=== PATIENT | male | born 1965 | race Caucasian/White ===

== ENCOUNTER 2018-12-26 17:28 | Observation (INO) | payer MEDICAID, OTHER ==
[2018-12-26 18:50] LABS: ADD MAN DIFF? NO
[2018-12-26 18:52] LABS: BASOPHIL # 0.1 10^3/ul (0.0-0.1); BASOPHILS % 0.8 % (0.0-2.0); EOSINOPHILS # 0.1 10^3/ul (0.0-0.5); EOSINOPHILS % 1.4 % (0.0-7.0); HEMATOCRIT 45.6 % (42.0-52.0); HEMOGLOBIN 15.7 g/dl (14.0-18.0); LYMPHOCYTES # 2.8 10^3/ul (0.8-2.9); LYMPHOCYTES % 32.1 % (15.0-51.0); MEAN CORPUSCULAR HEMOGLOBIN 29.8 pg (29.0-33.0); MEAN CORPUSCULAR HGB CONC 34.4 g/dl (32.0-37.0); MEAN CORPUSCULAR VOLUME 86.5 fl (82.0-101.0); MEAN PLATELET VOLUME 10.3 fl (7.4-10.4); MONOCYTE # 0.6 10^3/ul (0.3-0.9); MONOCYTES % 6.8 % (0.0-11.0); NEUTROPHIL # 5.1 10^3/ul (1.6-7.5); NEUTROPHILS % 58.2 % (39.0-77.0); PLATELET COUNT 204 10^3/UL (140-415); RED BLOOD COUNT 5.27 10^6/ul (4.70-6.10); RED CELL DISTRIBUTION WIDTH 12.1 % (11.5-14.5)
[2018-12-26 18:52] LABS: WHITE BLOOD COUNT 8.8 10^3/ul (4.8-10.8)
[2018-12-26] MEDS: NITROGLYCERIN 2% 1 GM OINT PKT TD (18:58)
[2018-12-26] MEDS: NITROGLYCERIN (SL) 0.4 MG TAB SL ×2 (18:58→23:59)
[2018-12-26] MEDS: ASPIRIN 81 MG TAB PO (18:58)
[2018-12-26 19:08] LABS: ANION GAP 7 (5-13); BLOOD UREA NITROGEN 16 mg/dl (7-20); CALCIUM 9.7 mg/dl (8.4-10.2); CARBON DIOXIDE 27 mmol/L (21-31); CHLORIDE 106 mmol/L (97-110); CREATININE 0.78 mg/dl (0.61-1.24); Estimated GFR > 60 mL/min (>60); GLUCOSE 222 mg/dl (70-220); POTASSIUM 4.4 mmol/L (3.5-5.1); SODIUM 140 mmol/L (135-144)
[2018-12-26 19:21] LABS: TROPONIN-I < 0.012 ng/ml (0.000-0.120)
[2018-12-26] MEDS ORDERED: NACL 0.9% 3 ML SYG IV (20:00)
[2018-12-26] MEDS ORDERED: ACETAMINOPHEN 325 MG TAB PO (20:00)
[2018-12-26] MEDS ORDERED: ONDANSETRON 4 MG INJ IV (20:00)
[2018-12-26] MEDS ORDERED: ALBUTEROL/IPRATROPIUM (NEB) 3 ML AMP HHN (20:00)
[2018-12-26] MEDS ORDERED: GLUCAGON 1 MG INJ IM (20:30)
[2018-12-26] MEDS ORDERED: GLUCOSE GEL 15 GRAM TUBE BUCCAL (20:30)
[2018-12-26] MEDS ORDERED: GLUCOSE GEL 15 GRAM TUBE PO ×2 (20:30)
[2018-12-26] MEDS ORDERED: DEXTROSE 50% 50 ML SYRINGE IV ×2 (20:30)
[2018-12-26] MEDS: morphine 4 MG/ML VIAL IV (20:50)
[2018-12-26] MEDS: ONDANSETRON 4 MG INJ IV (20:51)
[2018-12-26] MEDS: ATORVASTATIN 20 MG TAB PO (21:31)
[2018-12-26] MEDS: INSULIN ASPART [NOVOLOG] 3 ML PEN SC (21:53)
[2018-12-27] MEDS: NITROGLYCERIN (SL) 0.4 MG TAB SL ×3 (00:05→11:27)
[2018-12-27] MEDS: morphine 4 MG/ML VIAL IV ×2 (00:16→00:34)
[2018-12-27 00:40] LABS: CREATINE KINASE 40 IU/L (23-200)
[2018-12-27 00:53] LABS: CK INDEX 1.3; TROPONIN-I < 0.012 ng/ml (0.000-0.120)
[2018-12-27] MEDS: ACCU-CHEK XX (01:18)
[2018-12-27 06:26] LABS: ADD MAN DIFF? NO
[2018-12-27 06:37] LABS: WHITE BLOOD COUNT 7.5 10^3/ul (4.8-10.8)
[2018-12-27 06:37] LABS: BASOPHIL # 0.1 10^3/ul (0.0-0.1); BASOPHILS % 0.9 % (0.0-2.0); EOSINOPHILS # 0.1 10^3/ul (0.0-0.5); EOSINOPHILS % 1.6 % (0.0-7.0); HEMATOCRIT 43.8 % (42.0-52.0); HEMOGLOBIN 15.1 g/dl (14.0-18.0); LYMPHOCYTES % 39.5 % (15.0-51.0); MEAN CORPUSCULAR HGB CONC 34.5 g/dl (32.0-37.0); MEAN CORPUSCULAR VOLUME 87.1 fl (82.0-101.0); MEAN PLATELET VOLUME 10.4 fl (7.4-10.4); MONOCYTE # 0.6 10^3/ul (0.3-0.9); MONOCYTES % 8.2 % (0.0-11.0); NEUTROPHIL # 3.7 10^3/ul (1.6-7.5); NEUTROPHILS % 49.3 % (39.0-77.0); PLATELET COUNT 183 10^3/UL (140-415); RED BLOOD COUNT 5.03 10^6/ul (4.70-6.10); RED CELL DISTRIBUTION WIDTH 12.2 % (11.5-14.5)
[2018-12-27 07:02] LABS: ALANINE AMINOTRANSFERASE 20 IU/L (13-69); ALBUMIN 3.5 g/dl (3.3-4.9); ALBUMIN/GLOBULIN RATIO 1.52; ALKALINE PHOSPHATASE 47 IU/L (42-121); ANION GAP 7 (5-13); ASPARTATE AMINO TRANSFERASE 19 IU/L (15-46); BILIRUBIN,INDIRECT 0.5 mg/dl (0-1.1); BILIRUBIN,TOTAL 0.5 mg/dl (0.2-1.3); BLOOD UREA NITROGEN 17 mg/dl (7-20); CALCIUM 9.2 mg/dl (8.4-10.2); CARBON DIOXIDE 28 mmol/L (21-31); CHLORIDE 106 mmol/L (97-110); CHOL/HDL RATIO 7.8 RATIO; CHOLESTEROL 141 mg/dl (100-200); CREATININE 0.66 mg/dl (0.61-1.24); Estimated GFR > 60 mL/min (>60); GLUCOSE 166 mg/dl (70-220); HDL CHOLESTEROL 18 mg/dl (28-71); LDL CHOLESTEROL,CALCULATED 88 mg/dl; MAGNESIUM 1.9 mg/dl (1.7-2.5); POTASSIUM 4.1 mmol/L (3.5-5.1); SODIUM 141 mmol/L (135-144); TOTAL PROTEIN 5.8 g/dl (6.1-8.1); TRIGLYCERIDES 174 mg/dl (0-149)
[2018-12-27 07:24] LABS: CREATINE KINASE 45 IU/L (23-200)
[2018-12-27 07:25] LABS: CK INDEX 1.2; CK-MB 0.53 ng/ml (0.0-2.4); TROPONIN-I < 0.012 ng/ml (0.000-0.120)
[2018-12-27 07:40] LABS: HEMOGLOBIN A1C 9.3 % (0-5.9)
[2018-12-27] MEDS: INSULIN ASPART [NOVOLOG] 3 ML PEN SC ×5 (07:56→20:11)
[2018-12-27] MEDS: CLOPIDOGREL 75 MG TAB PO (08:19)
[2018-12-27] MEDS: FENOFIBRATE 48 MG TAB PO (08:19)
[2018-12-27] MEDS: LISINOPRIL 5 MG TAB PO (08:20)
[2018-12-27] MEDS: ISOSORBIDE MONONITRATE(SR)60 MG TAB PO (08:21)
[2018-12-27] MEDS: RIVAROXABAN 20 MG TABLET PO (08:21)
[2018-12-27] MEDS ORDERED: ENOXAPARIN 40 MG/0.4 ML SYG SC (09:00)
[2018-12-27] MEDS: morphine 2 MG INJ IV ×3 (12:21→22:56)
[2018-12-27] MEDS: INSULIN GLARGINE [LANTus] (100 UNITS/ML) SYG SC (13:51)
[2018-12-27] MEDS ORDERED: SOD CHLORIDE 0.9% 100 ML (16:13)
[2018-12-27] MEDS ORDERED: IOHEXOL 100 ML (16:13)
[2018-12-27] MEDS: MAGNESIUM SULFATE 1 GM/D5W 100 ML IVPB (17:33)
[2018-12-27] MEDS: RANOLAZINE (SR) 500 MG TAB PO (21:00)
[2018-12-27] MEDS: ATORVASTATIN 20 MG TAB PO (21:08)
[2018-12-28] MEDS: ACCU-CHEK XX (01:08)
[2018-12-28] MEDS: morphine 2 MG INJ IV (03:31)
[2018-12-28] MEDS: INSULIN ASPART [NOVOLOG] 3 ML PEN SC ×4 (07:39→12:36)
[2018-12-28] MEDS: FENOFIBRATE 48 MG TAB PO (08:48)
[2018-12-28] MEDS: RANOLAZINE (SR) 500 MG TAB PO ×2 (08:48→08:53)
[2018-12-28] MEDS: CLOPIDOGREL 75 MG TAB PO (08:49)
[2018-12-28] MEDS: LISINOPRIL 5 MG TAB PO (08:49)
[2018-12-28] MEDS: ISOSORBIDE MONONITRATE(SR)60 MG TAB PO (08:49)
[2018-12-28] MEDS: RIVAROXABAN 20 MG TABLET PO (08:49)
[2018-12-28 08:53] LABS: ANION GAP 6 (5-13); BLOOD UREA NITROGEN 18 mg/dl (7-20); CARBON DIOXIDE 29 mmol/L (21-31); CHLORIDE 105 mmol/L (97-110); CREATININE 0.77 mg/dl (0.61-1.24); Estimated GFR > 60 mL/min (>60); GLUCOSE 163 mg/dl (70-220); POTASSIUM 4.1 mmol/L (3.5-5.1); SODIUM 140 mmol/L (135-144)
[2018-12-28] MEDS: INSULIN GLARGINE [LANTus] (100 UNITS/ML) SYG SC (09:59)
== END 2018-12-28 13:00 | disposition home or self-care (01) ==
LOC: E/R 17:28 → TEL 21:07
DX: R07.9 Chest pain, unspecified (principal); I10 Essential (primary) hypertension; E11.9 Type 2 diabetes mellitus without complications; Z79.84 Long term (current) use of oral hypoglycemic drugs; I25.10 Atherosclerotic heart disease of native coronary artery without angina pectoris; Z95.5 Presence of coronary angioplasty implant and graft; Z95.1 Presence of aortocoronary bypass graft; E78.5 Hyperlipidemia, unspecified; Z86.711 Personal history of pulmonary embolism; Z72.0 Tobacco use
CPT/HCPCS: 36415; 71045; 75571-59; 75574; 80048; 80053; 80061; 82550; 82553; 82962; 83036; 83735; 84443; 84484; 85025; 93005; 93306; 93971; 96374; 96375; 99217; 99285-25; G0378

== ENCOUNTER 2019-01-13 18:55 | Inpatient (IN) | payer MEDICAID ==
[2019-01-13 20:01] LABS: ADD MAN DIFF? NO
[2019-01-13 20:03] LABS: BASOPHIL # 0.1 10^3/ul (0.0-0.1); BASOPHILS % 0.8 % (0.0-2.0); EOSINOPHILS # 0.1 10^3/ul (0.0-0.5); EOSINOPHILS % 1.5 % (0.0-7.0); HEMATOCRIT 43.8 % (42.0-52.0); HEMOGLOBIN 15.1 g/dl (14.0-18.0); LYMPHOCYTES # 2.4 10^3/ul (0.8-2.9); LYMPHOCYTES % 32.6 % (15.0-51.0); MEAN CORPUSCULAR HEMOGLOBIN 29.7 pg (29.0-33.0); MEAN CORPUSCULAR HGB CONC 34.5 g/dl (32.0-37.0); MEAN CORPUSCULAR VOLUME 86.2 fl (82.0-101.0); MEAN PLATELET VOLUME 10.3 fl (7.4-10.4); MONOCYTE # 0.6 10^3/ul (0.3-0.9); MONOCYTES % 7.5 % (0.0-11.0); NEUTROPHIL # 4.3 10^3/ul (1.6-7.5); NEUTROPHILS % 57.2 % (39.0-77.0); PLATELET COUNT 177 10^3/UL (140-415); RED BLOOD COUNT 5.08 10^6/ul (4.70-6.10)
[2019-01-13 20:03] LABS: WHITE BLOOD COUNT 7.5 10^3/ul (4.8-10.8)
[2019-01-13] MEDS: ONDANSETRON 4 MG INJ IV (20:03)
[2019-01-13] MEDS: SOD CHLORIDE 0.9% 1,000 ML IV (20:03)
[2019-01-13] MEDS: ASPIRIN 325 MG TAB PO (20:04)
[2019-01-13] MEDS: HYDROmorphONE 1 MG/ML SYG IV (20:04)
[2019-01-13 20:19] LABS: INR 1.08; PROTIME 14.1 Sec (11.9-14.9); PT RATIO 1.1
[2019-01-13 20:20] LABS: PARTIAL THROMBOPLASTIN TIME 33.7 Sec (23.0-35.0)
[2019-01-13 20:22] LABS: ANION GAP 6 (5-13); BLOOD UREA NITROGEN 14 mg/dl (7-20); CALCIUM 9.1 mg/dl (8.4-10.2); CARBON DIOXIDE 25 mmol/L (21-31); CHLORIDE 110 mmol/L (97-110); CREATINE KINASE 70 IU/L (23-200); CREATININE 0.61 mg/dl (0.61-1.24); Estimated GFR > 60 mL/min (>60); GLUCOSE 247 mg/dl (70-220); POTASSIUM 4.1 mmol/L (3.5-5.1); SODIUM 141 mmol/L (135-144)
[2019-01-13 20:31] LABS: CK INDEX 1.1; CK-MB 0.75 ng/ml (0.0-2.4)
[2019-01-13 20:35] LABS: TROPONIN-I < 0.012 ng/ml (0.000-0.120)
[2019-01-13] MEDS: HYDROmorphONE 2 MG/ML SYG IV (22:26)
[2019-01-13] MEDS: NITROGLYCERIN 2% 1 GM OINT PKT TD (22:28)
[2019-01-13] MEDS ORDERED: NITROGLYCERIN (SL) 0.4 MG TAB SL (22:30)
[2019-01-13] MEDS ORDERED: ONDANSETRON 4 MG INJ IV (22:30)
[2019-01-13] MEDS ORDERED: ACETAMINOPHEN 325 MG TAB PO (22:30)
[2019-01-14] MEDS ORDERED: NACL 0.9% 3 ML SYG IV (02:00)
[2019-01-14] MEDS ORDERED: ALBUTEROL/IPRATROPIUM (NEB) 3 ML AMP HHN (02:00)
[2019-01-14] MEDS ORDERED: NITROGLYCERIN (SL) 0.4 MG TAB SL ×2 (02:00)
[2019-01-14] MEDS ORDERED: ACETAMINOPHEN 325 MG TAB PO (02:00)
[2019-01-14 02:57] LABS: CREATINE KINASE 55 IU/L (23-200)
[2019-01-14 03:10] LABS: CK INDEX 1.4; CK-MB 0.77 ng/ml (0.0-2.4); TROPONIN-I < 0.012 ng/ml (0.000-0.120)
[2019-01-14] MEDS: KETOROLAC 30 MG INJ IV ×4 (03:32→20:42)
[2019-01-14] MEDS: ACCU-CHEK XX ×4 (05:52→21:34)
[2019-01-14 07:25] LABS: ADD MAN DIFF? NO
[2019-01-14 07:28] LABS: WHITE BLOOD COUNT 7.2 10^3/ul (4.8-10.8)
[2019-01-14 07:28] LABS: BASOPHIL # 0.1 10^3/ul (0.0-0.1); BASOPHILS % 0.8 % (0.0-2.0); EOSINOPHILS # 0.1 10^3/ul (0.0-0.5); EOSINOPHILS % 1.7 % (0.0-7.0); HEMATOCRIT 43.9 % (42.0-52.0); LYMPHOCYTES # 2.8 10^3/ul (0.8-2.9); LYMPHOCYTES % 38.4 % (15.0-51.0); MEAN CORPUSCULAR HEMOGLOBIN 29.9 pg (29.0-33.0); MEAN CORPUSCULAR HGB CONC 34.2 g/dl (32.0-37.0); MEAN CORPUSCULAR VOLUME 87.6 fl (82.0-101.0); MEAN PLATELET VOLUME 10.4 fl (7.4-10.4); MONOCYTE # 0.6 10^3/ul (0.3-0.9); MONOCYTES % 7.9 % (0.0-11.0); NEUTROPHIL # 3.6 10^3/ul (1.6-7.5); NEUTROPHILS % 50.8 % (39.0-77.0); PLATELET COUNT 157 10^3/UL (140-415); RED BLOOD COUNT 5.01 10^6/ul (4.70-6.10); RED CELL DISTRIBUTION WIDTH 12.3 % (11.5-14.5)
[2019-01-14 07:51] LABS: ALANINE AMINOTRANSFERASE 24 IU/L (13-69); ALBUMIN 3.6 g/dl (3.3-4.9); ALKALINE PHOSPHATASE 43 IU/L (42-121); ANION GAP 4 (5-13); ASPARTATE AMINO TRANSFERASE 18 IU/L (15-46); BILIRUBIN,INDIRECT 0.7 mg/dl (0-1.1); BILIRUBIN,TOTAL 0.7 mg/dl (0.2-1.3); BLOOD UREA NITROGEN 17 mg/dl (7-20); CALCIUM 8.7 mg/dl (8.4-10.2); CARBON DIOXIDE 25 mmol/L (21-31); CHLORIDE 112 mmol/L (97-110); CREATINE KINASE 55 IU/L (23-200); CREATININE 0.71 mg/dl (0.61-1.24); Estimated GFR > 60 mL/min (>60); GLUCOSE 183 mg/dl (70-220); POTASSIUM 4.1 mmol/L (3.5-5.1); SODIUM 141 mmol/L (135-144)
[2019-01-14 08:01] LABS: CK INDEX 1.3
[2019-01-14 08:03] LABS: TROPONIN-I < 0.012 ng/ml (0.000-0.120)
[2019-01-14] MEDS ORDERED: ENOXAPARIN 80 MG/0.8 ML SYG (08:32)
[2019-01-14] MEDS: CLOPIDOGREL 75 MG TAB PO (08:39)
[2019-01-14] MEDS: LISINOPRIL 5 MG TAB PO (08:40)
[2019-01-14] MEDS: FENOFIBRATE 48 MG TAB PO (08:40)
[2019-01-14] MEDS: RIVAROXABAN 10 MG TABLET PO (08:41)
[2019-01-14] MEDS: ISOSORBIDE MONONITRATE(SR)60 MG TAB PO (08:41)
[2019-01-14] MEDS: metFORMIN 500 MG TAB PO ×2 (08:41→18:03)
[2019-01-14] MEDS: HYDROCODONE/APAP (5/325) TAB PO ×2 (10:01→12:10)
[2019-01-14] MEDS: IOHEXOL 100 ML (16:42)
[2019-01-14] MEDS: SOD CHLORIDE 0.9% 100 ML (16:42)
[2019-01-14] MEDS: ONDANSETRON 4 MG INJ IV (20:42)
[2019-01-14] MEDS: ATORVASTATIN 20 MG TAB PO (20:42)
[2019-01-14] MEDS: ENOXAPARIN 80 MG/0.8 ML SYG SC (20:48)
[2019-01-15 05:33] LABS: ADD MAN DIFF? NO
[2019-01-15 05:34] LABS: WHITE BLOOD COUNT 7.5 10^3/ul (4.8-10.8)
[2019-01-15 05:34] LABS: BASOPHILS % 0.5 % (0.0-2.0); EOSINOPHILS # 0.1 10^3/ul (0.0-0.5); EOSINOPHILS % 1.6 % (0.0-7.0); HEMATOCRIT 39.7 % (42.0-52.0); HEMOGLOBIN 13.4 g/dl (14.0-18.0); LYMPHOCYTES # 1.7 10^3/ul (0.8-2.9); LYMPHOCYTES % 23.1 % (15.0-51.0); MEAN CORPUSCULAR HEMOGLOBIN 29.7 pg (29.0-33.0); MEAN CORPUSCULAR HGB CONC 33.8 g/dl (32.0-37.0); MEAN PLATELET VOLUME 10.6 fl (7.4-10.4); MONOCYTE # 0.6 10^3/ul (0.3-0.9); MONOCYTES % 7.3 % (0.0-11.0); PLATELET COUNT 132 10^3/UL (140-415); POSITIVE DIFF @See below; RED BLOOD COUNT 4.51 10^6/ul (4.70-6.10)
[2019-01-15] MEDS: ACCU-CHEK XX ×5 (06:19→20:23)
[2019-01-15 06:29] LABS: ANION GAP 5 (5-13); BLOOD UREA NITROGEN 21 mg/dl (7-20); CALCIUM 8.9 mg/dl (8.4-10.2); CARBON DIOXIDE 27 mmol/L (21-31); CHLORIDE 110 mmol/L (97-110); CREATININE 0.77 mg/dl (0.61-1.24); Estimated GFR > 60 mL/min (>60); GLUCOSE 118 mg/dl (70-220); MAGNESIUM 1.9 mg/dl (1.7-2.5); PHOSPHORUS 4.3 mg/dl (2.5-4.9); POTASSIUM 4.1 mmol/L (3.5-5.1); SODIUM 142 mmol/L (135-144)
[2019-01-15] MEDS: metFORMIN 500 MG TAB PO ×2 (08:20→20:53)
[2019-01-15] MEDS: FENOFIBRATE 48 MG TAB PO (08:21)
[2019-01-15] MEDS: CLOPIDOGREL 75 MG TAB PO (08:21)
[2019-01-15] MEDS: LISINOPRIL 5 MG TAB PO (08:21)
[2019-01-15] MEDS: HYDROCODONE/APAP (5/325) TAB PO ×3 (08:22→20:55)
[2019-01-15] MEDS: ISOSORBIDE MONONITRATE(SR)60 MG TAB PO (08:22)
[2019-01-15 12:49] LABS: URIC ACID 2.6 mg/dl (3.1-7.9)
[2019-01-15] MEDS: ATORVASTATIN 20 MG TAB PO (20:45)
[2019-01-15] MEDS: RANOLAZINE (SR) 500 MG TAB PO (20:46)
[2019-01-15] MEDS: ENOXAPARIN 80 MG/0.8 ML SYG SC (20:49)
[2019-01-15] MEDS: ONDANSETRON 4 MG INJ IV (22:30)
[2019-01-16] MEDS: HYDROCODONE/APAP (5/325) TAB PO ×3 (04:22→16:25)
[2019-01-16] MEDS: ACCU-CHEK XX ×4 (07:00→21:00)
[2019-01-16] MEDS: FENOFIBRATE 48 MG TAB PO (08:27)
[2019-01-16] MEDS: ISOSORBIDE MONONITRATE(SR)60 MG TAB PO (08:27)
[2019-01-16] MEDS: RANOLAZINE (SR) 500 MG TAB PO ×2 (08:27→20:26)
[2019-01-16] MEDS: CLOPIDOGREL 75 MG TAB PO (08:27)
[2019-01-16] MEDS: LISINOPRIL 5 MG TAB PO (08:27)
[2019-01-16] MEDS: metFORMIN 500 MG TAB PO ×2 (08:30→17:19)
[2019-01-16 12:06] LABS: ADD MAN DIFF? NO
[2019-01-16 12:22] LABS: BASOPHILS % 0.6 % (0.0-2.0); EOSINOPHILS # 0.1 10^3/ul (0.0-0.5); EOSINOPHILS % 1.3 % (0.0-7.0); HEMATOCRIT 39.2 % (42.0-52.0); HEMOGLOBIN 13.6 g/dl (14.0-18.0); LYMPHOCYTES # 1.8 10^3/ul (0.8-2.9); LYMPHOCYTES % 26.4 % (15.0-51.0); MEAN CORPUSCULAR HEMOGLOBIN 30.4 pg (29.0-33.0); MEAN CORPUSCULAR HGB CONC 34.7 g/dl (32.0-37.0); MEAN CORPUSCULAR VOLUME 87.5 fl (82.0-101.0); MEAN PLATELET VOLUME 10.7 fl (7.4-10.4); MONOCYTE # 0.5 10^3/ul (0.3-0.9); MONOCYTES % 7.6 % (0.0-11.0); NEUTROPHIL # 4.3 10^3/ul (1.6-7.5); NEUTROPHILS % 63.8 % (39.0-77.0); PLATELET COUNT 139 10^3/UL (140-415); POSITIVE DIFF @See below; RED BLOOD COUNT 4.48 10^6/ul (4.70-6.10); RED CELL DISTRIBUTION WIDTH 11.9 % (11.5-14.5)
[2019-01-16 12:22] LABS: WHITE BLOOD COUNT 6.7 10^3/ul (4.8-10.8)
[2019-01-16 12:26] LABS: ANION GAP 4 (5-13); BLOOD UREA NITROGEN 17 mg/dl (7-20); CALCIUM 8.7 mg/dl (8.4-10.2); CARBON DIOXIDE 30 mmol/L (21-31); CHLORIDE 104 mmol/L (97-110); CREATININE 0.87 mg/dl (0.61-1.24); Estimated GFR > 60 mL/min (>60); GLUCOSE 100 mg/dl (70-220); POTASSIUM 4.4 mmol/L (3.5-5.1); SODIUM 138 mmol/L (135-144)
[2019-01-16] MEDS: ONDANSETRON 4 MG INJ IV (13:12)
[2019-01-16] MEDS: ATORVASTATIN 20 MG TAB PO (20:26)
[2019-01-16] MEDS: ENOXAPARIN 80 MG/0.8 ML SYG SC (20:31)
[2019-01-16] MEDS: KETOROLAC 30 MG INJ IV (21:50)
[2019-01-17] MEDS: KETOROLAC 30 MG INJ IV ×3 (03:52→15:56)
[2019-01-17 06:12] LABS: ADD MAN DIFF? NO
[2019-01-17 06:19] LABS: WHITE BLOOD COUNT 7.4 10^3/ul (4.8-10.8)
[2019-01-17 06:19] LABS: BASOPHIL # 0.1 10^3/ul (0.0-0.1); BASOPHILS % 0.7 % (0.0-2.0); EOSINOPHILS # 0.1 10^3/ul (0.0-0.5); EOSINOPHILS % 1.5 % (0.0-7.0); HEMATOCRIT 42.3 % (42.0-52.0); HEMOGLOBIN 14.5 g/dl (14.0-18.0); LYMPHOCYTES # 1.6 10^3/ul (0.8-2.9); LYMPHOCYTES % 21.2 % (15.0-51.0); MEAN CORPUSCULAR HGB CONC 34.3 g/dl (32.0-37.0); MEAN CORPUSCULAR VOLUME 87.6 fl (82.0-101.0); MEAN PLATELET VOLUME 10.6 fl (7.4-10.4); MONOCYTE # 0.6 10^3/ul (0.3-0.9); MONOCYTES % 7.8 % (0.0-11.0); NEUTROPHIL # 5.1 10^3/ul (1.6-7.5); NEUTROPHILS % 68.3 % (39.0-77.0); PLATELET COUNT 138 10^3/UL (140-415); POSITIVE DIFF @See below; RED BLOOD COUNT 4.83 10^6/ul (4.70-6.10); RED CELL DISTRIBUTION WIDTH 11.9 % (11.5-14.5)
[2019-01-17 06:55] LABS: ANION GAP 6 (5-13); BLOOD UREA NITROGEN 17 mg/dl (7-20); CALCIUM 9.2 mg/dl (8.4-10.2); CARBON DIOXIDE 31 mmol/L (21-31); CHLORIDE 105 mmol/L (97-110); CREATININE 0.93 mg/dl (0.61-1.24); Estimated GFR > 60 mL/min (>60); GLUCOSE 114 mg/dl (70-220); POTASSIUM 4.3 mmol/L (3.5-5.1); SODIUM 142 mmol/L (135-144)
[2019-01-17] MEDS: ACCU-CHEK XX ×4 (07:59→21:31)
[2019-01-17] MEDS: metFORMIN 500 MG TAB PO ×2 (08:04→17:13)
[2019-01-17] MEDS: RANOLAZINE (SR) 500 MG TAB PO ×2 (09:28→20:43)
[2019-01-17] MEDS: FENOFIBRATE 48 MG TAB PO (09:28)
[2019-01-17] MEDS: LISINOPRIL 5 MG TAB PO (09:29)
[2019-01-17] MEDS: ISOSORBIDE MONONITRATE(SR)60 MG TAB PO (09:29)
[2019-01-17] MEDS: CLOPIDOGREL 75 MG TAB PO (09:30)
[2019-01-17] MEDS: ONDANSETRON 4 MG INJ IV (10:36)
[2019-01-17] MEDS ORDERED: DEXTROSE 50% 50 ML SYRINGE IV ×2 (11:30)
[2019-01-17] MEDS ORDERED: GLUCOSE GEL 15 GRAM TUBE PO ×2 (11:30)
[2019-01-17] MEDS ORDERED: GLUCAGON 1 MG INJ IM (11:30)
[2019-01-17] MEDS ORDERED: GLUCOSE GEL 15 GRAM TUBE BUCCAL (11:30)
[2019-01-17] MEDS: GABAPENTIN 300 MG CAP PO ×2 (12:19→20:51)
[2019-01-17] MEDS: INSULIN ASPART [NOVOLOG] 3 ML PEN SC ×3 (12:22→21:00)
[2019-01-17] MEDS: HYDROCODONE/APAP (5/325) TAB PO ×2 (17:07→21:30)
[2019-01-17] MEDS: ATORVASTATIN 20 MG TAB PO (20:43)
[2019-01-17] MEDS: INSULIN GLARGINE [LANTus] (100 UNITS/ML) SYG SC (20:46)
[2019-01-17] MEDS: ENOXAPARIN 80 MG/0.8 ML SYG SC (20:49)
[2019-01-18] MEDS: ACCU-CHEK XX ×3 (01:51→11:30)
[2019-01-18] MEDS: INSULIN ASPART [NOVOLOG] 3 ML PEN SC ×2 (08:00→12:00)
[2019-01-18] MEDS: FENOFIBRATE 48 MG TAB PO (08:08)
[2019-01-18] MEDS: CLOPIDOGREL 75 MG TAB PO (08:08)
[2019-01-18] MEDS: RANOLAZINE (SR) 500 MG TAB PO (08:08)
[2019-01-18] MEDS: GABAPENTIN 300 MG CAP PO (08:08)
[2019-01-18] MEDS: LISINOPRIL 5 MG TAB PO (08:09)
[2019-01-18] MEDS: ISOSORBIDE MONONITRATE(SR)60 MG TAB PO (08:10)
[2019-01-18] MEDS: metFORMIN 500 MG TAB PO (08:13)
== END 2019-01-18 13:00 | disposition home or self-care (01) | DRG 301 ==
LOC: 6WM 22:22 → E/R 18:55
DX: E11.51 Type 2 diabetes mellitus with diabetic peripheral angiopathy without gangrene (principal); M76.72 Peroneal tendinitis, left leg; I25.10 Atherosclerotic heart disease of native coronary artery without angina pectoris; Z95.1 Presence of aortocoronary bypass graft; F17.200 Nicotine dependence, unspecified, uncomplicated; R07.9 Chest pain, unspecified; Z79.82 Long term (current) use of aspirin; E78.5 Hyperlipidemia, unspecified; K57.90 Diverticulosis of intestine, part unspecified, without perforation or abscess without bleeding; N28.1 Cyst of kidney, acquired
CPT/HCPCS: 36415; 71045; 73120; 73610; 73630-LT; 73718; 73721; 75635; 80048; 80053; 82550; 82553; 82962; 83735; 84100; 84484; 84560; 85025; 85610; 85730; 93005; 93922; 96374; 96375; 96376; 97161; 99285-25; G0378

== ENCOUNTER 2019-02-02 17:13 | Inpatient (IN) | payer MEDICAID ==
[2019-02-02] MEDS: morphine 4 MG/ML VIAL IV (18:35)
[2019-02-02] MEDS: ONDANSETRON 4 MG INJ IV (18:35)
[2019-02-02] MEDS: SOD CHLORIDE 0.9% 500 ML IV (18:36)
[2019-02-02 18:38] LABS: ADD MAN DIFF? NO
[2019-02-02 18:40] LABS: BASOPHIL # 0.1 10^3/ul (0.0-0.1); EOSINOPHILS # 0.2 10^3/ul (0.0-0.5); EOSINOPHILS % 1.5 % (0.0-7.0); HEMATOCRIT 46.9 % (42.0-52.0); HEMOGLOBIN 16.4 g/dl (14.0-18.0); LYMPHOCYTES # 3.3 10^3/ul (0.8-2.9); LYMPHOCYTES % 28.5 % (15.0-51.0); MEAN CORPUSCULAR HEMOGLOBIN 30.1 pg (29.0-33.0); MEAN CORPUSCULAR VOLUME 86.2 fl (82.0-101.0); MEAN PLATELET VOLUME 10.2 fl (7.4-10.4); MONOCYTE # 0.7 10^3/ul (0.3-0.9); MONOCYTES % 5.9 % (0.0-11.0); NEUTROPHIL # 7.3 10^3/ul (1.6-7.5); NEUTROPHILS % 62.6 % (39.0-77.0); PLATELET COUNT 275 10^3/UL (140-415); RED BLOOD COUNT 5.44 10^6/ul (4.70-6.10); RED CELL DISTRIBUTION WIDTH 12.1 % (11.5-14.5)
[2019-02-02 18:40] LABS: WHITE BLOOD COUNT 11.6 10^3/ul (4.8-10.8)
[2019-02-02 18:58] LABS: ANION GAP 13 (5-13); BLOOD UREA NITROGEN 14 mg/dl (7-20); CARBON DIOXIDE 25 mmol/L (21-31); CHLORIDE 105 mmol/L (97-110); CREATININE 0.72 mg/dl (0.61-1.24); Estimated GFR > 60 mL/min (>60); GLUCOSE 189 mg/dl (70-220); LIPASE 109 U/L (23-300); POTASSIUM 4.4 mmol/L (3.5-5.1); SODIUM 143 mmol/L (135-144)
[2019-02-02 19:00] LABS: PROTIME 15.3 Sec (11.9-14.9); PT RATIO 1.2
[2019-02-02] MEDS ORDERED: ONDANSETRON 4 MG INJ IV (19:00)
[2019-02-02] MEDS ORDERED: ACETAMINOPHEN 325 MG TAB PO (19:00)
[2019-02-02 19:01] LABS: PARTIAL THROMBOPLASTIN TIME 35.2 Sec (23.0-35.0)
[2019-02-02] MEDS ORDERED: HYDROCODONE/APAP (5/325) TAB PO (20:00)
[2019-02-02] MEDS ORDERED: NITROGLYCERIN (SL) 0.4 MG TAB SL (20:00)
[2019-02-02] MEDS ORDERED: MAGNESIUM HYDROXIDE 30ML CUP PO (20:00)
[2019-02-02] MEDS ORDERED: NACL 0.9% 3 ML SYG IV (20:00)
[2019-02-02 20:23] LABS: HEMOGLOBIN A1C 8.7 % (0-5.9)
[2019-02-02] MEDS: INSULIN ASPART [NOVOLOG] 3 ML PEN SC (21:00)
[2019-02-02] MEDS ORDERED: DEXTROSE 50% 50 ML SYRINGE IV ×2 (21:00)
[2019-02-02] MEDS ORDERED: GLUCAGON 1 MG INJ IM (21:00)
[2019-02-02] MEDS ORDERED: GLUCOSE GEL 15 GRAM TUBE BUCCAL (21:00)
[2019-02-02] MEDS ORDERED: GLUCOSE GEL 15 GRAM TUBE PO ×2 (21:00)
[2019-02-02] MEDS: HYDROCODONE/APAP (5/325) TAB PO (21:19)
[2019-02-02] MEDS: DOCUSATE SODIUM 100 MG CAP PO (21:34)
[2019-02-02] MEDS: ATORVASTATIN 20 MG TAB PO (21:34)
[2019-02-02] MEDS: HEPARIN 5,000 UNIT/1 ML VIAL SC (21:34)
[2019-02-02] MEDS: GABAPENTIN 300 MG CAP PO (21:41)
[2019-02-02] MEDS ORDERED: ENALAPRILAT 1.25 MG INJ IV (22:00)
[2019-02-02] MEDS: morphine 2 MG INJ IV (22:19)
[2019-02-03] MEDS: morphine 2 MG INJ IV ×4 (06:06→23:24)
[2019-02-03] MEDS: PANTOPRAZOLE (EC) 40 MG TAB PO (06:06)
[2019-02-03] MEDS: HEPARIN 5,000 UNIT/1 ML VIAL SC ×2 (06:17→14:49)
[2019-02-03 06:19] LABS: ADD MAN DIFF? NO
[2019-02-03 06:25] LABS: BASOPHIL # 0.1 10^3/ul (0.0-0.1); EOSINOPHILS # 0.1 10^3/ul (0.0-0.5); EOSINOPHILS % 1.8 % (0.0-7.0); HEMATOCRIT 47.7 % (42.0-52.0); HEMOGLOBIN 16.3 g/dl (14.0-18.0); LYMPHOCYTES # 3.3 10^3/ul (0.8-2.9); LYMPHOCYTES % 40.9 % (15.0-51.0); MEAN CORPUSCULAR HEMOGLOBIN 29.7 pg (29.0-33.0); MEAN CORPUSCULAR HGB CONC 34.2 g/dl (32.0-37.0); MEAN CORPUSCULAR VOLUME 86.9 fl (82.0-101.0); MEAN PLATELET VOLUME 10.1 fl (7.4-10.4); MONOCYTE # 0.6 10^3/ul (0.3-0.9); MONOCYTES % 7.4 % (0.0-11.0); NEUTROPHIL # 3.9 10^3/ul (1.6-7.5); NEUTROPHILS % 48.3 % (39.0-77.0); PLATELET COUNT 223 10^3/UL (140-415); RED BLOOD COUNT 5.49 10^6/ul (4.70-6.10); RED CELL DISTRIBUTION WIDTH 12.4 % (11.5-14.5)
[2019-02-03 06:55] LABS: ANION GAP 6 (5-13); BLOOD UREA NITROGEN 15 mg/dl (7-20); CALCIUM 9.3 mg/dl (8.4-10.2); CARBON DIOXIDE 30 mmol/L (21-31); CHLORIDE 105 mmol/L (97-110); CREATININE 0.78 mg/dl (0.61-1.24); Estimated GFR > 60 mL/min (>60); GLUCOSE 152 mg/dl (70-220); POTASSIUM 4.4 mmol/L (3.5-5.1); SODIUM 141 mmol/L (135-144)
[2019-02-03 07:04] LABS: INR 1.11; PROTIME 14.4 Sec (11.9-14.9); PT RATIO 1.1
[2019-02-03 07:05] LABS: PARTIAL THROMBOPLASTIN TIME 32.2 Sec (23.0-35.0)
[2019-02-03] MEDS: GABAPENTIN 300 MG CAP PO ×3 (08:07→20:27)
[2019-02-03] MEDS: FENOFIBRATE 48 MG TAB PO (08:07)
[2019-02-03] MEDS: LISINOPRIL 5 MG TAB PO (08:07)
[2019-02-03] MEDS: ONDANSETRON 4 MG INJ IV (08:07)
[2019-02-03] MEDS: ISOSORBIDE MONONITRATE(SR)60 MG TAB PO (08:07)
[2019-02-03] MEDS: INSULIN ASPART [NOVOLOG] 3 ML PEN SC ×4 (08:14→20:36)
[2019-02-03] MEDS: ASPIRIN 325 MG TAB PO (12:29)
[2019-02-03] MEDS: RANOLAZINE (SR) 500 MG TAB PO ×2 (12:30→22:02)
[2019-02-03] MEDS: ATORVASTATIN 80 MG TAB PO (20:27)
[2019-02-03] MEDS: HYDROCODONE/APAP (10/325) TAB PO (20:29)
[2019-02-04] MEDS: DEXTROSE 5%-0.45% NACL 1,000 ML IV ×2 (00:27→17:11)
[2019-02-04] MEDS: INSULIN ASPART [NOVOLOG] 3 ML PEN SC ×6 (00:42→20:53)
[2019-02-04] MEDS: morphine 2 MG INJ IV ×2 (05:33→09:47)
[2019-02-04 06:01] LABS: ADD MAN DIFF? NO
[2019-02-04 06:06] LABS: WHITE BLOOD COUNT 7.2 10^3/ul (4.8-10.8)
[2019-02-04 06:06] LABS: BASOPHIL # 0.1 10^3/ul (0.0-0.1); BASOPHILS % 0.8 % (0.0-2.0); EOSINOPHILS # 0.1 10^3/ul (0.0-0.5); EOSINOPHILS % 1.5 % (0.0-7.0); HEMATOCRIT 42.1 % (42.0-52.0); HEMOGLOBIN 14.7 g/dl (14.0-18.0); LYMPHOCYTES # 2.4 10^3/ul (0.8-2.9); LYMPHOCYTES % 33.7 % (15.0-51.0); MEAN CORPUSCULAR HGB CONC 34.9 g/dl (32.0-37.0); MEAN CORPUSCULAR VOLUME 85.9 fl (82.0-101.0); MEAN PLATELET VOLUME 10.1 fl (7.4-10.4); MONOCYTE # 0.6 10^3/ul (0.3-0.9); MONOCYTES % 8.1 % (0.0-11.0); NEUTROPHILS % 55.5 % (39.0-77.0); PLATELET COUNT 200 10^3/UL (140-415); RED CELL DISTRIBUTION WIDTH 12.2 % (11.5-14.5)
[2019-02-04 06:49] LABS: ALANINE AMINOTRANSFERASE 32 IU/L (13-69); ALBUMIN 3.5 g/dl (3.3-4.9); ALKALINE PHOSPHATASE 59 IU/L (42-121); ANION GAP 7 (5-13); ASPARTATE AMINO TRANSFERASE 23 IU/L (15-46); BILIRUBIN,INDIRECT 0.3 mg/dl (0-1.1); BILIRUBIN,TOTAL 0.3 mg/dl (0.2-1.3); BLOOD UREA NITROGEN 16 mg/dl (7-20); CALCIUM 8.8 mg/dl (8.4-10.2); CARBON DIOXIDE 26 mmol/L (21-31); CHLORIDE 106 mmol/L (97-110); CREATININE 0.82 mg/dl (0.61-1.24); Estimated GFR > 60 mL/min (>60); GLUCOSE 224 mg/dl (70-220); POTASSIUM 3.8 mmol/L (3.5-5.1); SODIUM 139 mmol/L (135-144)
[2019-02-04] MEDS: FAMOTIDINE 20 MG TAB PO (09:00)
[2019-02-04] MEDS: FENOFIBRATE 48 MG TAB PO (09:00)
[2019-02-04] MEDS: ISOSORBIDE MONONITRATE(SR)60 MG TAB PO (09:00)
[2019-02-04] MEDS: RANOLAZINE (SR) 500 MG TAB PO ×2 (09:00→20:55)
[2019-02-04] MEDS: LISINOPRIL 5 MG TAB PO (09:00)
[2019-02-04] MEDS: GABAPENTIN 300 MG CAP PO ×3 (09:00→20:55)
[2019-02-04] MEDS: ASPIRIN 325 MG TAB PO (09:00)
[2019-02-04] MEDS: HEPARIN 1000 UNITS/ML 10 ML INJ (12:09)
[2019-02-04] MEDS ORDERED: MIDAZOLAM 1 MG/ML 2 ML INJ (12:45)
[2019-02-04] MEDS ORDERED: HEPARIN 1000 UNITS/ML 10 ML INJ (14:05)
[2019-02-04] MEDS: GELATIN SIZE 100 SPONGE (14:44)
[2019-02-04] MEDS: THROMBIN 5000 UNIT VIAL (14:45)
[2019-02-04] MEDS ORDERED: CEFAZOLIN 1 GM INJ (15:09)
[2019-02-04] MEDS ORDERED: ROCURONIUM 50 MG INJ (15:09)
[2019-02-04] MEDS ORDERED: ETOMIDATE 20 MG INJ (15:09)
[2019-02-04] MEDS ORDERED: LIDOCAINE 2% (SDV) 5 ML INJ (15:09)
[2019-02-04] MEDS ORDERED: ONDANSETRON 4 MG INJ (15:10)
[2019-02-04] MEDS ORDERED: HYDROmorphONE 1 MG/5 ML IV SYRINGE IV (15:30)
[2019-02-04] MEDS ORDERED: FENTAnyl 50 MCG/ML VIAL IV (15:30)
[2019-02-04] MEDS ORDERED: MEPERIDINE 25 MG INJ IV (15:30)
[2019-02-04] MEDS ORDERED: DIPHENHYDRAMINE 50 MG INJ IV (15:30)
[2019-02-04] MEDS ORDERED: METOCLOPRAMIDE 10 MG INJ IV (15:30)
[2019-02-04] MEDS ORDERED: ONDANSETRON 4 MG INJ IV (15:30)
[2019-02-04] MEDS ORDERED: LABETALOL HCL 20MG INJ IV (15:30)
[2019-02-04] MEDS ORDERED: hydrALAzine 20 MG INJ IV (15:30)
[2019-02-04] MEDS: HYDROmorphONE 1 MG/5 ML IV SYRINGE IV (16:21)
[2019-02-04] MEDS: ATORVASTATIN 80 MG TAB PO (20:55)
[2019-02-04] MEDS: HYDROCODONE/APAP (10/325) TAB PO (20:56)
[2019-02-05] MEDS: INSULIN ASPART [NOVOLOG] 3 ML PEN SC ×4 (01:23→12:22)
[2019-02-05] MEDS: DEXTROSE 5%-0.45% NACL 1,000 ML IV ×2 (04:36→04:46)
[2019-02-05] MEDS: ACETAMINOPHEN 325 MG TAB PO (06:12)
[2019-02-05] MEDS ORDERED: RIVAROXABAN 10 MG TABLET PO (09:00)
[2019-02-05] MEDS: ASPIRIN 325 MG TAB PO (09:01)
[2019-02-05] MEDS: GABAPENTIN 300 MG CAP PO ×2 (09:01→12:17)
[2019-02-05] MEDS: FENOFIBRATE 48 MG TAB PO (09:01)
[2019-02-05] MEDS: LISINOPRIL 5 MG TAB PO (09:02)
[2019-02-05] MEDS: RANOLAZINE (SR) 500 MG TAB PO (09:02)
[2019-02-05] MEDS: ISOSORBIDE MONONITRATE(SR)60 MG TAB PO (09:02)
[2019-02-05] MEDS: FAMOTIDINE 20 MG TAB PO (09:03)
[2019-02-05] MEDS: CLOPIDOGREL 75 MG TAB PO (09:32)
[2019-02-05] MEDS: RIVAROXABAN 20 MG TABLET PO (10:52)
[2019-02-05] MEDS ORDERED: metFORMIN 500 MG TAB PO (17:35)
[2019-02-06] MEDS ORDERED: RIVAROXABAN 20 MG TABLET PO (09:00)
== END 2019-02-05 14:10 | disposition home or self-care (01) | DRG 271 ==
LOC: 2NE 21:51 → ICU 02-04 16:45 → FTE 17:13 → 2NE 18:52
PROVIDERS: Internal Medicine
PROC: 04CL3ZZ Extirpation of Matter from Left Femoral Artery, Percutaneous Approach (ICD-10-PCS; principal; 2019-02-04 11:30)
PROC: 04UL3KZ Supplement Left Femoral Artery with Nonautologous Tissue Substitute, Percutaneous Approach (ICD-10-PCS; 2019-02-04 11:30)
PROC: 3E05317 Introduction of Other Thrombolytic into Peripheral Artery, Percutaneous Approach (ICD-10-PCS; 2019-02-04 11:30)
DX: I70.222 Atherosclerosis of native arteries of extremities with rest pain, left leg (principal); I27.82 Chronic pulmonary embolism; E11.8 Type 2 diabetes mellitus with unspecified complications; E11.42 Type 2 diabetes mellitus with diabetic polyneuropathy; Z72.0 Tobacco use; I25.10 Atherosclerotic heart disease of native coronary artery without angina pectoris; E78.5 Hyperlipidemia, unspecified; I10 Essential (primary) hypertension; J44.9 Chronic obstructive pulmonary disease, unspecified; Z95.1 Presence of aortocoronary bypass graft; I20.8 Other forms of angina pectoris; Z79.02 Long term (current) use of antithrombotics/antiplatelets
CPT/HCPCS: 36415; 71045; 80048; 80053; 82962; 83036; 83690; 85025; 85610; 85730; 86850; 86900; 86901; 87081; 88304; 93005; 96374; 96375; 97166; 99285-25